=== PATIENT | female | born 1960 | race African-American/Black ===

== ENCOUNTER 2017-12-11 11:48 | Emergency (ER) | payer OTHER, MEDICARE ==
[~2017-12-11] VITALS: Ht 170.2 cm; Wt 108.9 kg
--- NOTE | 2017-12-11 13:20 | RADIOLOGY REPORT ---
EXAMINATION: XR WRIST, LEFT CLINICAL INFORMATION: Left wrist pain, evaluate for fracture. Patient closed the left middle finger in a door. COMPARISON: There are no prior studies for comparison. TECHNIQUE: PA, lateral, and oblique views of the left wrist. FINDINGS: A skin marker is present over the dorsum of the hand at the level of the fourth metacarpal. No cortical defects are noted within the bony structures present on this study including the 5 metacarpal bones visualized portions of the proximal phalanxes, the carpal bony structures and distal radius and ulna. There is no evidence of a wrist joint effusion on lateral view. Minimal dorsal soft tissue swelling is noted. The bony alignment is within normal limits throughout. The scaphoid navicular view shows normal alignment of the scapholunate joint space. IMPRESSION: Minimal dorsal soft tissue swelling, no cortical defects are noted to suggest acute fracture..
--- NOTE | 2017-12-11 14:27 | ED HAND/WRIST INJURY COMPLAINT ---
History of Present Illness General Chief Complaint: Hand or Wrist Injury Stated Complaint: LFT HAND INJURY Source: patient Exam Limitations: no limitations Vital Signs & Intake/Output Vital Signs & Intake/Output Vital Signs Date Time Temp Pulse Resp B/P B/P Pulse O2 O2 Flow FiO2 Mean Ox Delivery Rate 12/11 1436 97.8 77 18 118/77 97 Room Air 12/11 1427 98 12/11 1203 97.8 74 18 133/88 96 Room Air ED Intake and Output 12/12 0000 12/11 1200 Intake Total 0 Output Total Balance 0 Intake, Oral 0 Patient 240 lb Weight Weight Reported by Patient Measurement Method Allergies Coded Allergies: sulfamethoxazole (From BACTRIM) (Intermediate, ITCHING 12/11/17) trimethoprim (From BACTRIM) (Intermediate, ITCHING 12/11/17) Reconcile Medications Alprazolam (Xanax) 2 MG TABLET 1 TAB PO QPM PRN SLEEP/ANXEITY Oxycodone HCl/Acetaminophen (Percocet 5-325 MG Tablet) 5 MG-325 MG TABLET 1-2 TAB PO BID PAIN Triage Note: PATIENT TO ER C/C LEFT WRIST PAIN X 3 WEEKS EXACERBATED BY MOVING. PATIENT STATES RAN OUT OF PERCOCET AND XANAX YESTERDAY. DECLINED PAIN MEDICATION AT TRIAGE Triage Nurses Notes Reviewed? yes Occurred: just prior to arrival Duration: day(s):, constant Timing: recent history Severity: moderate, severe Pain/Injury Location: Left: Wrist, Hand. No Modifying Factors: none HPI: 57-year-old female comes into the emergency room for further evaluation of left wrist pain. Patient reports that she was lifting some heavy boxes yesterday. She's had some pain since then. Some associated swelling. She also reports that she ran out of her pain medication and her Xanax. Her primary doctor won't be back to the in the month. She denies any other associated symptoms. Comes in for further evaluation. (Gabriele Costello) Past History Travel History Traveled to [place] past 21 day No Medical History Any Pertinent Medical History? see below for history Musculoskeletal: RIGHT MENISCUS TEAR LUPUS Surgical History Surgical History: non-contributory Psychosocial History What is your primary language Bulgarian Tobacco Use: Never used Family History Hx Contributory? No (Gabriele Costello) Review of Systems Review of Systems Constitutional: Reports: no symptoms. EENTM: Reports: no symptoms. Respiratory: Reports: no symptoms. Cardiovascular: Reports: no symptoms. GI: Reports: no symptoms. Genitourinary: Reports: no symptoms. Musculoskeletal: Reports: see HPI. Skin: Reports: no symptoms. Neurological/Psychological: Reports: no symptoms. Hematologic/Endocrine: Reports: no symptoms. Immunologic/Allergic: Reports: no symptoms. All Other Systems: Reviewed and Negative (Gabriele Costello) Physical Exam Physical Exam General Appearance: well developed/nourished, mild distress Head: atraumatic Eyes: Bilateral: normal appearance. Ears, Nose, Throat: normal ENT inspection, hearing grossly normal Neck: normal inspection Cardiovascular/Respiratory: no respiratory distress Back: normal inspection Wrist Left: soft tissue tenderness, limited range of motion Hand Left: limited range of motion Hand Right: normal inspection Neurologic/Tendon: normal sensation, normal motor functions, normal tendon functions, responds to pain, no evidence tendon injury, no pulse deficit Skin: intact, normal color, warm/dry Lymphatic: no anterior cervical ajay (Gabriele Costello) Progress Differential Diagnosis: contusion, dislocation, fracture, paronychia, sprain Plan of Care: Orders Procedure Date/time Status Durable Medical Equipment 12/11 1428 Active Diagnostic Imaging: Viewed by Me: Radiology Read. Discussed w/RAD: Radiology Read. Radiology Impression: PATIENT: DAREN EVANS PRESENT AGE: 57 PATIENT ACCOUNT NO: [id number] : 62 LOCATION: [facility] ORDERING PHYSICIAN: Chan Martinez DO (TBS) SERVICE DATE: 12/11/17 EXAM TYPE: RAD - XRY- WRIST COMPLETE-LEFT EXAMINATION: XR WRIST, LEFT CLINICAL INFORMATION: Left wrist pain, evaluate for fracture. Patient closed the left middle finger in a door. COMPARISON: There are no prior studies for comparison. TECHNIQUE: PA, lateral, and oblique views of the left wrist. FINDINGS: A skin marker is present over the dorsum of the hand at the level of the fourth metacarpal. No cortical defects are noted within the bony structures present on this study including the 5 metacarpal bones visualized portions of the proximal phalanxes, the carpal bony structures and distal radius and ulna. There is no evidence of a wrist joint effusion on lateral view. Minimal dorsal soft tissue swelling is noted. The bony alignment is within normal limits throughout. The scaphoid navicular view shows normal alignment of the scapholunate joint space. IMPRESSION: Minimal dorsal soft tissue swelling, no cortical defects are noted to suggest acute fracture.. DICTATED BY: Nadine Aaron MD DATE/TIME DICTATED:12/11/171313 CLINICAL SCIENTIST:TONYA DATE/TIME TRANSCRIBED:12/11/171313 CONFIDENTIAL, DO NOT COPY WITHOUT APPROPRIATE AUTHORIZATION. <Electronically signed in Other Vendor System> SIGNED BY: Nadine Aaron MD 12/11/17 1320 (Gabriele Costello) Departure Departure Disposition: HOME OR SELF CARE Condition: Stable Clinical Impression Primary Impression: Strain of left wrist Referrals: Loc FLORES,Kiet Blanc (PCP/Family) Additional Instructions: Take Percocet and Xanax as prescribed. Follow-up with your primary care doctor. Return if any concerns worsening symptoms. Please go over all results of today's visit with your primary care doctor. Contact your primary care doctor to let them know you were here in the emergency room. There may be nonspecific findings which may not be related to your visit today here in the emergency room but may require further evaluation and chronic monitoring by your primary care doctor. If you had a laceration today the chance of foreign body always remains. You should follow-up with your primary care doctor for recheck in 3-5 days for a wound check. If you had an x-ray done there is a chance that a fracture could have been missed on initial read and you should follow-up with your primary care doctor for repeat x-rays if symptoms persist. If your blood pressure was elevated here in the emergency room please have rechecked by [facility] primary care doctor within the next 48. If you were prescribed a narcotic here in the emergency room or any type of controlled substances you're not allowed to drive while taking this medication or operate any type of heavy machinery. Narcotics can make you feel lightheaded dizziness nausea and can cause constipation. You may need to picking belt operator a stool softener. Thank you for choosing [facility] emergency room. Please return to the emergency room immediately if you have any other concerns worsening of symptoms. Departure Forms: Customer Survey General Discharge Information Prescriptions: Current Visit Scripts Alprazolam (Xanax) 1 TAB PO QPM PRN SLEEP/ANXEITY #60 TAB Oxycodone HCl/Acetaminophen (Percocet 5-325 MG Tablet) 1-2 TAB PO BID #10 TAB (Gabriele Costello) PA/[employer] Co-Sign Statement Statement: ED Attending supervision documentation- [] I saw and evaluated the patient. I have also reviewed all the pertinent lab results and diagnostic results. I agree with the findings and the plan of care as documented in the PA's/[employer]'s documentation. [X] I have reviewed the ED Record and agree with the PA's/[employer]'s documentation. [] Additions or exceptions (if any) to the PAs/[employer] SAL[employer]'s note and plan are summarized below: [] (Miladis FLORES,Renae) Procedures Splinting Location: LEFT WRIST Manual Alignment Performed: No Pre-Made Type: velcro Splint: wrist Splint Applied By: splint applied by me Pre-Proc Neuro Vasc Exam: normal Post-Proc Neuro Vasc Exam: normal (Gabriele Costello)
[2017-12-11] MEDS ORDERED: PERCOCET 5-3251 EACH PO (14:28)
[2017-12-11] MEDS ORDERED: XANAX2 M1 PO (14:28)
== END 2017-12-11 14:35 ==
LOC: ERH 11:48
DX: S66.912A Strain of unspecified muscle, fascia and tendon at wrist and hand level, left hand, initial encounter (principal); X50.0XXA Overexertion from strenuous movement or load, initial encounter; Y93.89 Activity, other specified; Y92.9 Unspecified place or not applicable
CPT/HCPCS: 73110-LT

== ENCOUNTER 2018-01-16 10:10 | Emergency (ER) | payer OTHER, MEDICARE ==
[~2018-01-16] VITALS: Ht 170.2 cm; Wt 102.1 kg
[~2018-01-16 10:10] MED LIST: PERCOCET 5-3251 EACH PO; XANAX2 M1 PO
[2018-01-16 10:40] VITALS: BP 129/79
--- NOTE | 2018-01-16 10:48 | ED GENERAL ADULT ---
History of Present Illness General Chief Complaint: General Adult Stated Complaint: REQ MED REFILL Source: patient Exam Limitations: no limitations Vital Signs & Intake/Output Vital Signs & Intake/Output Vital Signs Date Time Temp Pulse Resp B/P B/P Pulse O2 O2 Flow FiO2 Mean Ox Delivery Rate 01/16 1040 97.3 98 15 129/79 96 Room Air Room Air Allergies Coded Allergies: sulfamethoxazole (From BACTRIM) (Intermediate, ITCHING 01/16/18) trimethoprim (From BACTRIM) (Intermediate, ITCHING 01/16/18) Reconcile Medications Methocarbamol (Robaxin) 500 MG TABLET 1 TAB PO TID PRN muscle spasms Naproxen (Naprosyn) 500 MG TABLET 1 TAB PO BID PRN pain Triage Note: PT BIBA FROM HOME FOR C/C OF LOWER BACK PAIN THAT RADIATES DOWN BILATERAL LEGS. TRYING TO GET INTO PAIN CLINIC. WAS ON "OXYCODONE 10/90" AND "XANAX 20 MG" FOR ANXIETY. DENIES SI/HI. Triage Nurses Notes Reviewed? yes Onset: Gradual Duration: worse persistent since (2 days) Timing: recent history Injury Environment: home Severity: moderate Severity Numbers: 8 Modifying Factors: Improves With: immobilization. Worsens With: movement. HPI: Patient is a 57-year-old female with history of chronic back pain and spasms currently is prescribed Percocet and Xanax to help control her symptoms. Patient reports that she ran out of the medications over the past couple days. Has been worse pain. Denies any urinary incontinence or retention. Movement makes the pain worse. Nothing seems to make it better. Tried calling her primary care physician but they told her to come to the emergency department if her pain got worse. Denies abdominal pain. No nausea vomiting fevers or chills chest pain or shortness of breath. Denies any new injury. Patient reports that she is just looking for refill of medications. (Kendy Mata) Past History Travel History Traveled to [place] past 21 day No Medical History Any Pertinent Medical History? see below for history Musculoskeletal: RIGHT MENISCUS TEAR LUPUS LOWER BACK PROBLEMS Surgical History Surgical History: non-contributory Psychosocial History What is your primary language Vietnamese Tobacco Use: Never used ETOH Use: denies use Illicit Drug Use: denies illicit drug use Family History Hx Contributory? No (Kendy Mata) Review of Systems Review of Systems Constitutional: Reports: no symptoms. Comments Review of systems: See HPI, All other systems negative. Constitutional, no chills fever or weight loss HEENT: No visual changes no sore throat no congestion Cardiovascular: No chest pain ,palpitation , orthopnea or ankle swelling Skin, no jaundice no rashes Respiratory: No dyspnea cough sputum or hemoptysis GI: No nausea no vomiting : No dysuria No hematuria Muscle skeletal: no neck pain, Neurologic: No numbness no confusion Psych: No stress anxiety or depression,. Heme/endocrine: No bruising no bleeding no polyuria or polydipsia Immunology: No splenectomy or history of AIDS (Kendy Mata) Physical Exam Physical Exam General Appearance: well developed/nourished, no apparent distress, alert, awake , comfortable Comments: Well-developed well-nourished person in no acute distress HEENT: Atraumatic, normocephalic edema. Neck: Normal inspection Back: Limited range of motion secondary to pain with forward flexion. Negative modified straight leg raise bilaterally. Tender to palpation along the lumbar paraspinal muscles bilaterally. No bony tenderness. Respiratory: No respiratory distress. Extremity: No edema, no calf tenderness to palpation, normal and equal pulses. Neuro: Alert oriented x3, motor sensory normal Skin: No appreciable rash on exposed skin, skin is warm and dry. Psych: Mood and affect is normal, memory and judgment is normal. Core Measures ACS in differential dx? No CVA/TIA Diagnosis: No Sepsis Present: No Sepsis Focused Exam Completed? No (Kendy Mata) Progress Differential Diagnoses I considered the following diagnoses in my evaluation of the patient: Muscle strain, cauda equina, herniated disc, chronic pain, medication seeking Plan of Care: Patient has been prescribed Percocet and Xanax, suppose to have active prescriptions at this time according to [facility] INFORMATION ASSURANCE OFFICER report. Patient had 60 oxycodone acetaminophen 03/28/2025 tablets filled on December 25 and patient also had alprazolam 2 mg tablets, 60 of them filled on December 11. I did not feel comfortable re-prescribing these medications as she is supposed to have active prescriptions time. No true with other medications. Patient to follow up with her primary care physician. Initial ED EKG: none (Kendy Mata) Departure Departure Time of Disposition: 1100 Disposition: HOME OR SELF CARE Condition: Stable Clinical Impression Primary Impression: Chronic pain Qualifiers: Chronic pain type: other chronic pain Qualified Code: G89.29 - Other chronic pain Referrals: Loc FLORES,Kiet Blanc (PCP/Family) Additional Instructions: Follow-up with pain management and your primary care physician, call to make an appointment for the next 5-7 days. Take Robaxin help with muscle spasms. Take naproxen help with pain. Unfortunately we are not able to fill your Percocet and Xanax prescription today as you have had active prescriptions currently that should still be readily available. Make sure you take all prescriptions as prescribed. Departure Forms: Customer Survey General Discharge Information Prescriptions: Current Visit Scripts Methocarbamol (Robaxin) 1 TAB PO TID PRN muscle spasms #10 TAB Naproxen (Naprosyn) 1 TAB PO BID PRN pain #10 TAB (Kendy Mata) PA/SALES SERVICE SUPERVISOR Co-Sign Statement Statement: ED Attending supervision documentation- [] I saw and evaluated the patient. I have also reviewed all the pertinent lab results and diagnostic results. I agree with the findings and the plan of care as documented in the PA's/SALES SERVICE SUPERVISOR's documentation. [X] I have reviewed the ED Record and agree with the PA's/SALES SERVICE SUPERVISOR's documentation. [] Additions or exceptions (if any) to the PAs/SALES SERVICE SUPERVISOR's note and plan are summarized below: [] (Urmila FLORES,Arturo Brownlee) Critical Care Note Critical Care Note Critical Care Time: non-applicable (Kendy Mata)
[2018-01-16] MEDS ORDERED: ROBAXIN500 M1 PO (11:02)
[2018-01-16] MEDS ORDERED: NAPROSYN500 M1 PO (11:02)
[2018-01-16] MEDS ORDERED: TRAZODONE HCL50 M1 PO (22:22)
[2018-01-16] MEDS ORDERED: XANAX2 M1 (22:24)
== END 2018-01-16 11:07 ==
LOC: ERH 10:10
DX: G89.29 Other chronic pain (principal)

== ENCOUNTER 2018-01-16 20:16 | Emergency (ER) | payer OTHER, MEDICARE ==
[~2018-01-16] VITALS: Ht 170.2 cm; Wt 102.1 kg
[~2018-01-16 20:16] MED LIST changes: +NAPROSYN500 M1 PO; +ROBAXIN500 M1 PO
[2018-01-16] MEDS ORDERED: TRAZODONE HCL50 M1 PO (22:22)
--- NOTE | 2018-01-16 22:23 | ED GENERAL ADULT ---
History of Present Illness General Chief Complaint: Psychiatric Related Complaint Stated Complaint: BIBA PSYCH EVAL Source: patient, family, old records, EMS Exam Limitations: no limitations Vital Signs & Intake/Output Vital Signs & Intake/Output Vital Signs Date Time Temp Pulse Resp B/P B/P Pulse O2 O2 Flow FiO2 Mean Ox Delivery Rate 01/16 2225 98.5 104 16 124/80 97 Room Air 01/16 2223 Room Air 01/16 2024 98.5 107 18 123/86 96 Room Air Allergies Coded Allergies: sulfamethoxazole (From BACTRIM) (Intermediate, ITCHING 01/16/18) trimethoprim (From BACTRIM) (Intermediate, ITCHING 01/16/18) Reconcile Medications Alprazolam (Xanax) 2 MG TABLET ANXIETY/SLEEP (Reported) Methocarbamol (Robaxin) 500 MG TABLET 1 TAB PO TID PRN muscle spasms Naproxen (Naprosyn) 500 MG TABLET 1 TAB PO BID PRN pain Trazodone HCl 50 MG TABLET 1 TAB PO QPM PRN insomnia May repeat x 1 after 45 minutes if not asleep Triage Note: PT FROM HOME C/O MED REFILL. PER EMS PT WAS BIBA BECAUSE OF PD CALLS THE PAST 5 DAYS. PT HAS BEEN CALLING PD FOR HELP SINCE PT RAN OUT OF ANXIETY/SLEEP MEDICATION. PT IS NOT PAPERED, PT IS VOLUNTARY WITH 14 YEAR OLD SON PRESENT WITH DISABLITIES. PT DOES NOT HAVE ANY FAMILY TO LEAVE SON WITH. PT DENIES SI/HI. PT SEEN HERE EARLIER TODAY FOR ANXIETY ATTACK. PT STATES "I RAN OUT OF MY SLEEP MEDICATION I NORMALLY TAKE 2,G XANEX EVERYNIGHT. PER EMS PT HAS BEEN HALLUCINATING THE PAST FEW DAYS. VSS, AFEBRILE. Triage Nurses Notes Reviewed? yes Onset: Last week Duration: day(s):, constant, continues in ED Timing: recent history Injury Environment: home Severity: severe No Modifying Factors: none LMP (ages 10-50): post menopausal : No Patient currently breastfeeds: No HPI: Patient presents requesting Xanax for insomnia occurring over the last week. She reports taking 4 mg of Xanax daily at bedtime but has run out. She denies fever chills nausea vomiting diarrhea abdominal pain chest pain shortness breath headache dysuria rash bleeding suicidal ideation homicidal ideation hallucination. EMS report to nursing that the patient has been calling the police department. She reports calling them due to issues with neighbor's not with insomnia. Past History Travel History Traveled to [place] past 21 day No Medical History Any Pertinent Medical History? see below for history Musculoskeletal: RIGHT MENISCUS TEAR LUPUS LOWER BACK PROBLEMS Surgical History Surgical History: non-contributory Psychosocial History What is your primary language Sinhala Tobacco Use: Never used Family History Hx Contributory? No Review of Systems Review of Systems Constitutional: Reports: no symptoms. EENTM: Reports: no symptoms. Respiratory: Reports: no symptoms. Cardiovascular: Reports: no symptoms. GI: Reports: no symptoms. Genitourinary: Reports: no symptoms. Musculoskeletal: Reports: see HPI, back pain, joint pain. Skin: Reports: no symptoms. Neurological/Psychological: Reports: no symptoms. Hematologic/Endocrine: Reports: no symptoms. Immunologic/Allergic: Reports: no symptoms. All Other Systems: Reviewed and Negative Physical Exam Physical Exam General Appearance: well developed/nourished, alert, awake, anxious, obese Head: atraumatic, normal appearance Eyes: Bilateral: normal appearance, PERRL, EOMI. Ears, Nose, Throat: normal pharynx, normal ENT inspection, hearing grossly normal Neck: normal inspection, supple, full range of motion, no midline tenderness Respiratory: normal breath sounds, chest non-tender, no respiratory distress, quiet respiration, lungs clear Cardiovascular: regular rate/rhythm, normal peripheral pulses, norml femoral pulses equa Peripheral Pulses: 4+ carotid (R), 4+ carotid (L) Gastrointestinal: normal bowel sounds, soft, non-tender, no organomegaly Back: normal inspection, normal range of motion, no vertebral tenderness Extremities: normal inspection, normal capillary refill, normal range of motion, no edema Neurologic/Psych: no motor/sensory deficits, awake, alert, oriented x 3, normal gait, fire prevention bureau captain II-XII nml as tested Reflexes: 2+: bicep (R), bicep (L). Skin: intact, normal color, warm/dry Lymphatic: no anterior cervical ajay Core Measures ACS in differential dx? No CVA/TIA Diagnosis: No Sepsis Present: No Sepsis Focused Exam Completed? No Progress Differential Diagnoses I considered the following diagnoses in my evaluation of the patient: benzodiazepine abuse insomnia depression chronic pain Plan of Care: trazodone prn Initial ED EKG: none Departure Departure Time of Disposition: 2220 Disposition: HOME OR SELF CARE Condition: Stable Clinical Impression Primary Impression: Insomnia disorder Qualifiers: Insomnia type: unspecified Qualified Code: G47.00 - Insomnia, unspecified Referrals: Loc FLORES,Kiet Blanc (PCP/Family) Departure Forms: Customer Survey General Discharge Information Prescriptions: Current Visit Scripts Trazodone HCl 1 TAB PO QPM PRN insomnia #30 TAB May repeat x 1 after 45 minutes if not asleep Critical Care Note Critical Care Note Critical Care Time: non-applicable
[2018-01-16] MEDS ORDERED: XANAX2 M1 (22:24)
[2018-01-16 22:25] VITALS: BP 124/80
== END 2018-01-16 22:25 ==
LOC: ERH 20:16
DX: G47.00 Insomnia, unspecified (principal)